=== PATIENT | female | born 1980 | race Two or more races ===

== ENCOUNTER 2024-05-04 11:21 | Emergency (ER) | payer OTHER ==
[~2024-05-04] VITALS: Ht 154.9 cm; Wt 76.7 kg
[2024-05-04] MEDS ORDERED: PRENATAL + DHA1 EAC1 PO (12:08)
[2024-05-04 14:18] LABS: HEMATOCRIT 41.9 % (36.0-45.00); MEAN CELL VOLUME 89.5 fL (80.00-100.00); MEAN CORPUSCULAR HEMOGLOBIN 29.8 pg (27.00-32.0); MEAN CORPUSCULAR HGB CONC 33.3 g/dl (32.0-36.0); PLATELET COUNT 320 K/uL (150-450); RED BLOOD COUNT 4.69 M/uL (4.00-6.00); RED CELL DISTRIBUTION WIDTH 13.6 % (11.5-14.5)
[2024-05-04 14:37] LABS: INR 1.01; PARTIAL THROMBOPLASTIN TIME 30.2 SECONDS (22.0-34.0)
[2024-05-04 15:07] LABS: BILIRUBIN TOTAL 0.35 mg/dL (0.3-1.2); CALCIUM 9.1 mg/dL (8.5-10.1); CREATININE SERUM 0.53 mg/dL (0.55-1.02); GFR 125.32; GLOBULINA 3.8 G/DL (2.4-3.5); POTASSIUM 4.29 mEq/L (3.5-5.1); TOTAL PROTEIN 7.8 gm/dL (6.4-8.2)
[2024-05-04 15:28] LABS: URINE APPEARANCE Clear; URINE BILIRRUBIN Negative (NEGATIVE); URINE BLOOD Large; URINE COLOR Yellow; URINE GLUCOSE Negative (NEGATIVE); URINE KETONE 15 (NEGATIVE); URINE LEUKOCYTE Trace; URINE NITRATE Negative; URINE PROTEIN 30 (NEGATIVE); URINE UROBILINOGEN 0.2 E.U./dl
[2024-05-04 15:34] LABS: URINE BACTERIA 1354.3 uL (0.0-1933); URINE EPITHELIAL CELLS 42.6 uL (0.0-38.8); URINE RBC 651.1 uL (0.0-20.8); URINE WBC 47.6 uL (0.0-23.2)
== END 2024-05-04 19:19 | disposition home or self-care (01) ==
LOC: ER 11:23
PROVIDERS: General Practice
DX: O20.8 Other hemorrhage in early pregnancy (principal); Z3A.10 10 weeks gestation of pregnancy

== ENCOUNTER 2025-01-11 06:46 | Emergency (ER) | payer OTHER ==
[~2025-01-11] VITALS: Ht 154.9 cm; Wt 80.3 kg
[~2025-01-11 06:46] MED LIST: PRENATAL + DHA1 EAC1 PO
[2025-01-11] MEDS ORDERED: FOLIC ACID0.4 MG PO (07:25)
[2025-01-11 09:13] LABS: BASO % 0.2 % (0.1-1.2); EOS # 0.38 (0.04-0.54); EOS % 4.7 % (0.7-7.0); HEMATOCRIT 41.2 % (34.1-44.9); HEMOGLOBIN 13.6 g/dL (11.2-15.7); LYMPH % 23.5 % (19.3-53.1); MEAN CORPUSCULAR HEMOGLOBIN 29.1 pg (25.6-32.2); MONO # 0.44 (0.24-0.82); MONO % 5.4 % (4.7-12.5); NEUT # 5.31 (1.56-6.13); NEUT % 65.8 % (34.0-71.1); PLATELET COUNT 318 K/uL (163-369); RED BLOOD COUNT 4.68 M/uL (3.93-5.22); RED CELL DISTRIBUTION WIDTH 12.9 % (11.6-14.4)
== END 2025-01-11 12:41 | disposition home or self-care (01) ==
LOC: ER 06:46
PROVIDERS: Emergency Medicine
DX: O20.9 Hemorrhage in early pregnancy, unspecified (principal); Z3A.11 11 weeks gestation of pregnancy